=== PATIENT | male | born 1985 | race Caucasian/White ===

== ENCOUNTER 2017-04-12 23:14 | Emergency (ER) | payer OTHER ==
[2017-04-12 23:37] VITALS: BP 132/82
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
[2017-04-13] MEDS ORDERED: Sodium Chloride 0.9% 10 ML Syringe FLUSH PRN (00:16)
[2017-04-13] MEDS ORDERED: Iopamidol 612 MG/ML 150 ML Bottle IVPUSH ONE (00:16)
--- NOTE | 2017-04-15 17:59 | CR ---
Chest and right ribs: Frontal view of the chest was obtained as well as three-views of the right ribs. Comparison: Prior chest x-ray is not available, chest CT performed earlier on the same date is available (12:32 AM). Heart size and mediastinum are normal. Lungs are clear. No discrete right sided rib abnormality is appreciated. Impression: 1. Nothing acute is seen on frontal chest x-ray. No discrete right sided rib abnormality is appreciated. Diagnostic code #2
--- NOTE | 2017-04-15 17:59 | CT ---
CT thoracic spine Technique: Multiple axial sections through the thoracic spine were obtained. Reconstructed coronal and sagittal images were obtained. Findings: Nondisplaced fracture is noted within the spinous process of T5. No additional fracture is seen. No paravertebral soft tissue swelling is noted. Visualized posterior ribs are intact. No bony central or bony neural foraminal stenosis is seen. No abnormal subluxation is seen. Impression: 1. Nondisplaced spinous process fracture of T5. Diagnostic code #3
--- NOTE | 2017-04-15 18:00 | CR ---
Right shoulder: Three views of the right shoulder were obtained. Comparison: No previous right shoulder study. Glenohumeral joint and acromioclavicular joint appear within normal limits. No fracture, dislocation or other bony abnormality is seen. Impression: 1. No abnormality is identified on right shoulder study. Diagnostic code #1
--- NOTE | 2017-04-15 18:00 | CT ---
CT chest Technique: Multiple axial sections were obtained from above the lung apices inferiorly through the lung bases. Intravenous contrast was utilized. Comparison: No prior chest imaging. Findings: Mediastinum and hilar regions appear within normal limits. Axillary regions are unremarkable. No pericardial thickening is seen. Lungs are clear. No pulmonary contusion is seen. No pleural effusions or pneumothorax is seen. Bone window settings show a nondisplaced fracture within the spinous process of T5. No other acute bony abnormality is appreciated. Impression: 1. Nondisplaced spinous process fracture of T5. 2. No additional abnormality is identified on CT study of the chest. Diagnostic code #3 Agree with preliminary report issued by [employer] ([email or web address] preliminary report dictated on 04/13/17, 2:09 AM Central Time) CT abdomen and pelvis Technique: Multiple axial sections were obtained from above the dome of the diaphragm inferiorly through the pubic symphysis. Intravenous contrast was utilized. No oral contrast has been given. Delayed images were also obtained through the bladder. Comparison: No previous abdominal imaging. Findings: Liver shows no focal parenchymal abnormality. Spleen appears within normal limits. Adrenal glands show no nodule. Pancreas is within normal limits. Kidneys show symmetric contrast enhancement without hydronephrosis or mass. Aorta shows no aneurysmal dilatation. No retroperitoneal adenopathy or mesenteric abnormalities are seen. The appendix is seen and is normal. No pelvic mass or adenopathy is seen. Delayed images show contrast within the distal ureters and within the bladder. Bone window settings were reviewed which show no acute thoracic spine finding. No fracture is seen within either hip or within the pelvis. Impression: 1. Nothing acute is identified on CT study of the abdomen and pelvis. Diagnostic code #1 Agree with preliminary report issued by [employer] ([email or web address] preliminary report dictated on 04/13/17, 2:09 AM Central Time)
== END 2017-04-13 03:05 | disposition home or self-care (01) ==
LOC: JD.ED 23:14
DX: S22.008A Other fracture of unspecified thoracic vertebra, initial encounter for closed fracture (principal); S43.401A Unspecified sprain of right shoulder joint, initial encounter; S33.6XXA Sprain of sacroiliac joint, initial encounter; S30.1XXA Contusion of abdominal wall, initial encounter; S20.211A Contusion of right front wall of thorax, initial encounter; F17.210 Nicotine dependence, cigarettes, uncomplicated; V86.59XA Driver of other special all-terrain or other off-road motor vehicle injured in nontraffic accident, initial encounter; Y92.410 Unspecified street and highway as the place of occurrence of the external cause
CPT/HCPCS: 71101; 71260; 72128; 73030; 74177; 99284; J7050; Q9967